=== PATIENT | male | born 1970 | race Caucasian/White ===

== ENCOUNTER 2023-04-23 09:06 | Observation (INO) | payer OTHER, SELFPAY ==
[2023-04-23] VITALS (26 sets, daily range): BP systolic 102–142; BP diastolic 67–90; PULSE 81–101; RESP 18–21; TEMP 36.7–37.2; O2SAT 94–99; BMI 27.7; BMI 28.8
--- NOTE | 2023-04-23 09:50 | ED_ITS ---
HPI - Syncope General Time Seen by Provider: 09:50 Date Seen: 04/23/23 Chief Complaint: Syncope/Fainted Stated Complaint: passed out Time Seen by Provider: 04/23/23 09:49 Source: patient, RN notes reviewed and old records reviewed Mode of arrival: ambulatory Limitations: no limitations History of Present Illness HPI narrative: Patient is a very pleasant 52-year-old male previously healthy who comes to the emergency room via EMS for evaluation regarding Syncope and not feeling well. Patient notes that he arose this morning and he experience some chills and some joint pain. He states he sat out on his deck in the sun and when he came in to go get a Kleenex because his nose was running he felt lightheaded. He describes feeling dizzy and he went to sit in the chair and once he got there he became unresponsive. His states that he was shaking somewhat and she was holding him up otherwise he would have fallen to the floor. EMS was called and when the y arrived they helped him to the ground and he states that he could hear all other voices. His states that once he was laid down he came too pretty quick although when he 1st started speaking they could not understand him. patient states that this was dizziness and when I describe vertigo he denies that. States he was very lightheaded. He notes that he has passed out in the past and this was secondary to blood loss from diverticulitis. He notes no recent diarrhea or blood in his stool. Patient's describes him as sitting down in the chair in becoming very white and tensing up. She states he looked like he was having a seizure and she held him up in this lasted for several minutes while awaiting EMS. She upon further discussion she thinks 5 her last. She notes that he was gurgling and making some weird noises and she was worried he was going to stop breathing but he actually did not. Patient denies any fever. He has not had cough cold sore throat. He denies dysuria hematuria abdominal pain. He has not been in the [place] recently or had any tick bites. He notes no chest pain or shortness of breath. He notes he just feels very tired at this time. Related Data Home Medications Medication Instructions Recorded Confirmed fexofenadine 180 mg tablet 180 mg PO QDAY 08/08/22 04/23/23 ([facility]) mupirocin 2 % topical ointment 1 applic topical TID 08/08/22 omeprazole magnesium 20 mg 20 mg PO DAILY 04/23/23 04/23/23 tablet,delayed release (Prilosec OTC) Allergies Allergy/AdvReac Type Severity Reaction Status Date / Time No Known Drug Allergies Allergy Verified 08/08/22 13:46 Review of Systems Status of ROS: Reports: 10 or more systems reviewed and unremarkable except as noted in History and below Narrative: Denies recent travel calf tenderness or history of DVT. Const: Reports: chills and fatigue; Denies: fever Eyes: Denies: blurry vision ENMT: Denies: throat pain, neck pain, throat swelling, difficulty swallowing or hoarseness Cardio: Denies: chest pain, palpitations, swelling of feet/ankles, lightheadedness or shortness of breath with exertion Resp: Denies: shortness of breath, cough or wheezing GI: Denies: abdominal pain, nausea, vomiting, diarrhea, constipation, difficulty swallowing or blood in stool : Denies: painful urination, urinary frequency or urinary urgency Musculo: Denies: back pain, neck pain or extremity swelling Integ/Breast: Denies: rash, redness or skin tenderness Neuro: Denies: headache, numbness in extremities or weakness in extremities Endo: Reports: fatigue Allergy/Immuno: Denies: throat swelling or wheezing PFSH PFS Medical History Anemia ?D64.9 - Anemia, unspecified (ICD-10) Erectile dysfunction ?N52.9 - Male erectile dysfunction, unspecified (ICD-10) Gout ?M10.9 - Gout, unspecified (ICD-10) Seasonal allergies ?J30.2 - Other seasonal allergic rhinitis (ICD-10) Gastroesophageal reflux disease ?K21.9 - Gastro-esophageal reflux disease without esophagitis (ICD-10) Kidney stones ?N20.0 - Calculus of kidney (ICD-10) Diverticular hemorrhage ?K57.31 - Diverticulosis of large intestine without perforation or abscess with bleeding (ICD-10) Social History Narrative: He lives with his , stepdaughter and grandson. 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 He does not smoke. Drinks alcohol 2 or 3 times a week. He has no recreational drug use. Smoking Status: Never smoker Do you use any of these nicotine containing products: None Second hand tobacco smoke exposure: No How often do you have a drink containing alcohol: 2-3 times a week How many standard drinks containing alcohol do you have on a typical day: 3 or 4 How often do you have six or more drinks on one occasion: Never AUDIT-C Alcohol total score: 4 Non-prescribed substance use: denies use Exam Narrative: Exam Narrative: Eric is alert and oriented. Appropriate speech. GCS of 15 Head is atraumatic normocephalic. Patient appears somewhat pale to me. EOM is full pupils equal round reactive. Oral cavity with moist mucous membranes. Neck is supple without lymphadenopathy. heart with a tachycardic rate but normal rhythm. Lungs are clear bilaterally Abdomen is soft nontender. Lower extremities without edema. No calf tenderness, negative Homans sign. Patient has upper and lower extremity strength that is normal. Mentating normally. Const: Vital Signs, click to edit/add: Vital Signs - 24 hr 04/23/23 09:16 04/23/23 09:17 04/23/23 09:31 Temperature 98.1 F Pulse Rate 89 86 Pulse Rate [Pulse Oximeter] 87 Pulse Rate [orthos tatic lying] Pulse Rate [orthos tatic sitting] Pulse Rate [orthos tatic standing] Respiratory Rate 18 Blood Pressure 114/72 113/72 Blood Pressure [Le ft Upper Arm] 114/72 Blood Pressure [or thostatic lying Le ft Arm] Blood Pressure [or thostatic sitting Left Arm] Blood Pressure [or thostatic standing Left Arm] Pulse Oximetry 97 97 97 Oxygen Delivery Ut thod Room Air 04/23/23 09:38 04/23/23 10:01 04/23/23 11:02 Temperature Pulse Rate 94 81 Pulse Rate [Pulse Oximeter] Pulse Rate [orthos tatic lying] 84 Pulse Rate [orthos tatic sitting] 87 Pulse Rate [orthos tatic standing] 93 Respiratory Rate Blood Pressure 118/79 120/71 Blood Pressure [Le ft Upper Arm] Blood Pressure [or thostatic lying Le ft Arm] 107/67 Blood Pressure [or thostatic sitting Left Arm] 110/72 Blood Pressure [or thostatic standing Left Arm] 102/70 Pulse Oximetry 98 97 Oxygen Delivery Me thod 04/23/23 11:31 04/23/23 12:01 04/23/23 12:31 Temperature Pulse Rate 91 86 99 Pulse Rate [Pulse Oximeter] Pulse Rate [orthos tatic lying] Pulse Rate [orthos tatic sitting] Pulse Rate [orthos tatic standing] Respiratory Rate Blood Pressure 123/77 124/79 112/73 Blood Pressure [Le ft Upper Arm] Blood Pressure [or thostatic lying Le ft Arm] Blood Pressure [or thostatic sitting Left Arm] Blood Pressure [or thostatic standing Left Arm] Pulse Oximetry 96 96 96 Oxygen Delivery Me thod 04/23/23 13:00 04/23/23 13:02 04/23/23 13:17 Temperature Pulse Rate 98 96 94 Pulse Rate [Pulse Oximeter] Pulse Rate [orthos tatic lying] Pulse Rate [orthos tatic sitting] Pulse Rate [orthos tatic standing] Respiratory Rate Blood Pressure 123/76 Blood Pressure [Le ft Upper Arm] Blood Pressure [or thostatic lying Le ft Arm] Blood Pressure [or thostatic sitting Left Arm] Blood Pressure [or thostatic standing Left Arm] Pulse Oximetry 98 98 94 Oxygen Delivery Me thod 04/23/23 13:30 04/23/23 13:31 04/23/23 13:45 Temperature Pulse Rate 89 90 85 Pulse Rate [Pulse Oximeter] Pulse Rate [orthos tatic lying] Pulse Rate [orthos tatic sitting] Pulse Rate [orthos tatic standing] Respiratory Rate Blood Pressure 127/82 Blood Pressure [Le ft Upper Arm] Blood Pressure [or thostatic lying Le ft Arm] Blood Pressure [or thostatic sitting Left Arm] Blood Pressure [or thostatic standing Left Arm] Pulse Oximetry 98 96 98 Oxygen Delivery Me thod 04/23/23 14:00 04/23/23 14:02 04/23/23 14:15 Temperature Pulse Rate 86 95 82 Pulse Rate [Pulse Oximeter] Pulse Rate [orthos tatic lying] Pulse Rate [orthos tatic sitting] Pulse Rate [orthos tatic standing] Respiratory Rate Blood Pressure 131/83 Blood Pressure [Le ft Upper Arm] Blood Pressure [or thostatic lying Le ft Arm] Blood Pressure [or thostatic sitting Left Arm] Blood Pressure [or thostatic standing Left Arm] Pulse Oximetry 99 98 98 Oxygen Delivery Me thod 04/23/23 14:30 04/23/23 14:31 04/23/23 14:45 Temperature Pulse Rate 94 83 90 Pulse Rate [Pulse Oximeter] Pulse Rate [orthos tatic lying] Pulse Rate [orthos tatic sitting] Pulse Rate [orthos tatic standing] Respiratory Rate Blood Pressure 142/83 H Blood Pressure [Le ft Upper Arm] Blood Pressure [or thostatic lying Le ft Arm] Blood Pressure [or thostatic sitting Left Arm] Blood Pressure [or thostatic standing Left Arm] Pulse Oximetry 98 99 98 Oxygen Delivery Me thod 04/23/23 15:02 Temperature Pulse Rate Pulse Rate [Pulse Oximeter] Pulse Rate [orthos tatic lying] Pulse Rate [orthos tatic sitting] Pulse Rate [orthos tatic standing] Respiratory Rate Blood Pressure 133/90 H Blood Pressure [Le ft Upper Arm] Blood Pressure [or thostatic lying Le ft Arm] Blood Pressure [or thostatic sitting Left Arm] Blood Pressure [or thostatic standing Left Arm] Pulse Oximetry Oxygen Delivery Ut thod Documenting provider has reviewed patient's vital signs: yes Course Reevaluation(s) Reevaluation #1: Differential diagnosis includes but is not limited to pneumonia, COVID, cardiac arrhythmia, infection, anxiety, dehydration. Will place an IV and give normal saline as well as check labs to include CBC, troponin, comprehensive panel, CRP, urinalysis. will also add blood cultures and lactate Reevaluation #2: at this time chest x-ray reassuring. EKG without evidence of acute findings. We are still waiting on urinalysis. Lactate elevated and thus we will give saline bolus based on weight 30 mL/kilogram as patient does meet sepsis criteria with tachycardia, elevated white count, elevated lactate. He does not yet have a temperature but is describing significant chills. No evidence of respiratory compromise and chest x-rays without evidence of pneumonia. Vital Signs Vital signs: Initial Vital Signs Temperature 98.1 F 04/23/23 09:16 Temperature Source Temporal Artery Scan 04/23/23 09:16 Pulse Rate 87 04/23/23 09:16 Respiratory Rate 18 04/23/23 09:16 Blood Pressure 114/72 04/23/23 09:16 Blood Pressure Mean 86 04/23/23 09:16 Blood Pressure Position Supine 04/23/23 09:16 Pulse Oximetry 97 04/23/23 09:16 Oxygen Delivery Method Room Air 04/23/23 09:16 Vital Signs Temperature 98.1 F 04/23/23 09:16 Pulse Rate 87 04/23/23 09:16 Respiratory Rate 18 04/23/23 09:16 Blood Pressure 114/72 04/23/23 09:16 Pulse Oximetry 97 04/23/23 09:16 Oxygen Delivery Method Room Air 04/23/23 09:16 Temperature 98.1 F 04/23/23 09:16 Pulse Rate 90 04/23/23 14:45 Respiratory Rate 18 04/23/23 09:16 Blood Pressure 133/90 H 04/23/23 15:02 Pulse Oximetry 98 04/23/23 14:45 Oxygen Delivery Method Room Air 04/23/23 09:16 MDM - Syncope MDM Narrative Medical decision making narrative: 1. Sepsis-patient has elevated white count Of 17.79elevated lactate of 2 point 4,elevated CRP with chills, syncope. At this time to not have identifiable source of infection. Blood cultures are currently pending. Patient is given Zosyn 3.375 g IV will be admitted to the hospital while we are awaiting official cultures. Have added West Nile and a tick-borne panel to laboratory values. Patient received a total of 2750 mils of normal saline. COVID/influenza/ RSV and strep all negative as well. 2. History of diverticular bleed-patient notes no abdominal pain or blood in stool. Hemoglobin is 11 point 3. 3. Syncope-patient noted to be feeling lightheaded. Denies vertigo. Was able to lift his head from the table when EMS arrived but definitely improved once he was lying on the ground. EKG shows sinus rhythm and during his time here no evidence of arrhythmia on the air sampling and monitoring. subsequent drug tox and alcohol negative. Troponin is negative. Patient had no evidence of loss of bowel bladder control and the shaking her seizure activity likely secondary to being held up after syncopal episode. 4. Disposition- admit to the hospital under the care of Dr. St. Antibiotics currently pending outcome of blood cultures. Medical Records Attestation: I reviewed the patient's medical records. Lab Data Attestation: I reviewed the patient's lab results. Labs: Lab Results 04/23/23 04/23/23 04/23/23 Range/Units 10:30 12:40 13:15 WBC 17.79 H (4.50-11.00) K/uL RBC 5.01 (4.30-5.90) m/uL Hgb 11.3 L (13.5-17.5) gm/dL Hct 37.1 (37.0-53.0) % MCV 74 L (80-100) fL MCH 23 L (26-34) pg MCHC 31 L (32-36) gm/dL RDW Coeff of Libra 16.3 H (11.5-15.5) % Plt Count 358 (140-440) K/uL Neut % (Auto) 87.3 H (42.0-72.0) % Lymph % (Auto) 6.0 L (20-44) % [place]ue % (Auto) 6.2 (0.0-11.0) % Eos % (Auto) 0.2 (0.0-7.0) % Baso % (Auto) 0.2 (0.0-3.0) % Neut # (Auto) 15.50 H (1.7-7.0) K/uL Lymph # (Auto) 1.10 (0.90-2.90) K/uL [place] # (Auto) 1.10 H (0.00-0.90) K/UL Eos # (Auto) 0.00 (0.00-0.50) K/uL Baso # (Auto) 0.00 (0.00-0.30) K/uL D-Dimer Quant (PE/DVT) 0.87 H (0.00-0.50) ug/ml Sodium 139 (135-149) mmol/L Potassium 4.4 (3.6-5.1) mmol/L Chloride 105 (96-114) mmol/L Carbon Dioxide 26 (20-32) mmol/L BUN 15 (7-30) mg/dL Creatinine 1.3 (0.5-1.5) mg/dL Estimated Creat Clear 72.13 Estimated GFR 66 ml/min Glucose 99 (60-115) mg/dL Lactate 2.3 H 2.4 H (0.5-1.9) mmol/L Calcium 9.0 (8.4-10.6) mg/dL Total Bilirubin 0.8 (0.1-1.5) mg/dL AST 28 (12-35) U/L ALT 29 (4-50) U/L Alkaline Phosphatase 104 (40-150) U/L C-Reactive Protein 2.2 H (0.5-1.0) mg/dL Total Protein 7.3 (6.0-8.3) g/dL Albumin 4.2 (3.3-5.0) g/dL Procalcitonin 0.14 (<0.50) ng/mL Urine Color Yellow (Yellow) Urine Appearance Clear (Clear) Urine pH 6.0 (5.0-8.5) Ur Specific [place] 1.020 (1.000-1.030) Urine Protein Negative (Negative) Urine Glucose (UA) Negative (Negative) Urine Ketones Negative (Negative) Urine Blood Negative (Negative) Urine Nitrite Negative (Negative) Urine Bilirubin Negative (Negative) Urine Urobilinogen 0.2 (0.2-1.0) Ur Leukocyte Esterase Negative (Negative) Urine RBC 0-2 (0-2) Urine WBC 0-2 (0-5) Ur Squamous Epith Cells Few (None-Few) Urine Bacteria Few A (None) Urine Opiates Screen Negative (Negative) Ur Oxycodone Screen Negative (Negative) Urine Methadone Screen Negative (Negative) Ur Propoxyphene Screen Negative (Negative) Ur Barbiturates Screen Negative (Negative) U Tricyclic Antidepress Negative (Negative) Ur Phencyclidine Scrn Negative (Negative) Ur Amphetamines Screen Negative (Negative) U Methamphetamines Scrn Negative (Negative) U Benzodiazepines Scrn Negative (Negative) Urine Cocaine Screen Negative (Negative) U Marijuana (THC) Screen Negative (Negative) Ur Drug Screen Comment See Note Ethyl Alcohol < 0.01 L (0.01-0.03) % SARS-CoV-2 (PCR) Negative SARS-CoV-2 (Negative) Influenza Type A (PCR) Negative PCR FLU A (Negative) Influenza Type B (PCR) Negative PCR FLU B (Negative) RSV (PCR) Negative PCR RSV (Negative) Group A Strep DNA NOT DETECTED (Not Detectd) Lab Acknowledgement POC Troponin I 0.00 L 0.00 L (0.01-0.04) ng/ml 04/23/23 04/23/23 Range/Units 14:35 14:42 WBC (4.50-11.00) K/uL RBC (4.30-5.90) m/uL Hgb (13.5-17.5) gm/dL Hct (37.0-53.0) % MCV (80-100) fL MCH (26-34) pg MCHC (32-36) gm/dL RDW Coeff of Libra (11.5-15.5) % Plt Count (140-440) K/uL Neut % (Auto) (42.0-72.0) % Lymph % (Auto) (20-44) % Larue % (Auto) (0.0-11.0) % Eos % (Auto) (0.0-7.0) % Baso % (Auto) (0.0-3.0) % Neut # (Auto) (1.7-7.0) K/uL Lymph # (Auto) (0.90-2.90) K/uL [place] # (Auto) (0.00-0.90) K/UL Eos # (Auto) (0.00-0.50) K/uL Baso # (Auto) (0.00-0.30) K/uL D-Dimer Quant (PE/DVT) (0.00-0.50) ug/ml Sodium (135-149) mmol/L Potassium (3.6-5.1) mmol/L Chloride (96-114) mmol/L Carbon Dioxide (20-32) mmol/L BUN (7-30) mg/dL Creatinine (0.5-1.5) mg/dL Estimated Creat Clear Estimated GFR ml/min Glucose (60-115) mg/dL Lactate (0.5-1.9) mmol/L Calcium (8.4-10.6) mg/dL Total Bilirubin (0.1-1.5) mg/dL AST (12-35) U/L ALT (4-50) U/L Alkaline Phosphatase (40-150) U/L C-Reactive Protein (0.5-1.0) mg/dL Total Protein (6.0-8.3) g/dL Albumin (3.3-5.0) g/dL Procalcitonin (<0.50) ng/mL Urine Color (Yellow) Urine Appearance (Clear) Urine pH (5.0-8.5) Ur Specific [place] (1.000-1.030) Urine Protein (Negative) Urine Glucose (UA) (Negative) Urine Ketones (Negative) Urine Blood (Negative) Urine Nitrite (Negative) Urine Bilirubin (Negative) Urine Urobilinogen (0.2-1.0) Ur Leukocyte Esterase (Negative) Urine RBC (0-2) Urine WBC (0-5) Ur Squamous Epith Cells (None-Few) Urine Bacteria (None) Urine Opiates Screen (Negative) Ur Oxycodone Screen (Negative) Urine Methadone Screen (Negative) Ur Propoxyphene Screen (Negative) Ur Barbiturates Screen (Negative) U Tricyclic Antidepress (Negative) Ur Phencyclidine Scrn (Negative) Ur Amphetamines Screen (Negative) U Methamphetamines Scrn (Negative) U Benzodiazepines Scrn (Negative) Urine Cocaine Screen (Negative) U Marijuana (THC) Screen (Negative) Ur Drug Screen Comment Ethyl Alcohol (0.01-0.03) % SARS-CoV-2 (PCR) (Negative) Influenza Type A (PCR) (Negative) Influenza Type B (PCR) (Negative) RSV (PCR) (Negative) Group A Strep DNA (Not Detectd) Lab Acknowledgement Test Added Test Added POC Troponin I (0.01-0.04) ng/ml Imaging Data Chest x-ray: Attestation: I have reviewed the pertinent imaging results. My impression: No obvious infiltrates. Radiologist's impression: he cardiomediastinal contours appear within normal limits. No suspicious focal or diffuse pulmonary opacities. No definite pneumothorax or pleural effusion. No aggressive appearing osseous lesion. IMPRESSION: No acute pulmonary process. ECG Data Attestation: I personally reviewed and interpreted this ECG as follows: ECG interpretation date: 04/23/23 Interpretation: EKG 1. Shows sinus rhythm at a rate of 85. No acute ST or T-wave changes are noted. EKG 2. Shows sinus rhythm at a rate of [address] or T-wave changes Discharge Plan Discharge Clinical Impression: Syncope Qualifiers: Syncope type: unspecified Qualified Code(s): R55 - Syncope and collapse Sepsis Qualifiers: Sepsis type: sepsis due to unspecified organism Sepsis acute organ dysfunction status: unspecified Qualified Code(s): A41.9 - Sepsis, unspecified organism Patient Disposition: Admitted As Inpatient Condition: Improved
--- NOTE | 2023-04-23 10:04 | CRLHL7_ITS ---
For Patients: As a result of the Century Cures Act, medical imaging exams and procedure reports are released immediately into your electronic medical record. You may view this report before your referring provider. If you have questions, please contact your health care provider. INDICATION: Passed out TECHNIQUE: Single portable frontal view COMPARISON: None available FINDINGS: The cardiomediastinal contours appear within normal limits. No suspicious focal or diffuse pulmonary opacities. No definite pneumothorax or pleural effusion. No aggressive appearing osseous lesion. IMPRESSION: No acute pulmonary process. Dictated by Fernando Laguerre MD @ 04/23/2023 11:09:41 AM (Electronically Signed)
[2023-04-23] MEDS: 0.9 % SODIUM CHLORIDE 1000 ml 1,000 ML IV ×2 (10:35→12:15)
[2023-04-23 10:41] LABS: Lactate* 2.3 mmol/L (0.5-1.9)
[2023-04-23 10:44] LABS: Basophils Percent Auto 0.2 % (0.0-3.0); Eosinophils Percent Auto 0.2 % (0.0-7.0); Hematocrit 37.1 % (37.0-53.0); Hemoglobin* 11.3 gm/dL (13.5-17.5); Immature Granulocytes Pct Auto 0.1 %; Mean Corpuscular HGB Conc 31 gm/dL (32-36); Mean Corpuscular Hemoglobin 23 pg (26-34); Mean Corpuscular Volume 74 fL (80-100); Monocytes Percent Auto 6.2 % (0.0-11.0); Neutrophils Percent Auto 87.3 % (42.0-72.0); Platelet Count* 358 K/uL (140-440); RDW Coefficient of Variation % 16.3 % (11.5-15.5); Red Blood Count 5.01 m/uL (4.30-5.90); White Blood Count* 17.79 K/uL (4.50-11.00)
[2023-04-23 10:45] LABS: Slide Review Reflex No
[2023-04-23 11:00] LABS: Albumin* 4.2 g/dL (3.3-5.0); Chloride* 105 mmol/L (96-114); Potassium* 4.4 mmol/L (3.6-5.1); Sodium* 139 mmol/L (135-149)
[2023-04-23 11:02] LABS: Creatinine* 1.3 mg/dL (0.5-1.5); Est. Creatinine Clearance* 72.13; Estimated Glomerular Filt Rate 66 ml/min
[2023-04-23 11:03] LABS: Alanine Aminotransferase* 29 U/L (4-50); Alkaline Phosphatase* 104 U/L (40-150); Aspartate Amino Transferase* 28 U/L (12-35); Bilirubin Total* 0.8 mg/dL (0.1-1.5); Blood Urea Nitrogen* 15 mg/dL (7-30); Carbon Dioxide* 26 mmol/L (20-32); Total Protein* 7.3 g/dL (6.0-8.3)
[2023-04-23 11:04] LABS: Glucose* 99 mg/dL (60-115)
[2023-04-23 11:06] LABS: C Reactive Protein* 2.2 mg/dL (0.5-1.0)
[2023-04-23 11:36] LABS: PCR FLU A Negative PCR FLU A (Negative); PCR FLU B Negative PCR FLU B (Negative); PCR RSV Negative PCR RSV (Negative)
[2023-04-23 11:37] LABS: Strep A DNA Probe* NOT DETECTED (Not Detectd)
[2023-04-23 11:38] LABS: SARS PCR* Negative SARS-CoV-2 (Negative)
[2023-04-23 12:51] LABS: Lactate* 2.4 mmol/L (0.5-1.9)
[2023-04-23 13:20] LABS: Appearance Urine Clear (Clear); Bilirubin Urine Negative (Negative); Blood Urine Negative (Negative); Color Urine Yellow (Yellow); Glucose Urine Negative (Negative); Ketones Urine Negative (Negative); Leukocyte Esterase Urine Negative (Negative); Nitrite Urine Negative (Negative); Protein Urine Negative (Negative); Urobilinogen Urine 0.2 (0.2-1.0)
[2023-04-23 13:32] LABS: Bacteria Urine Few; RBC Urine 0-2 (0-2); Squamous Epithelial Cell Urine Few (None-Few); WBC Urine 0-2 (0-5)
--- NOTE | 2023-04-23 13:50 | ED.NURSE ---
Report given to JS Dubon.
[2023-04-23] MEDS: 0.9 % SODIUM CHLORIDE 500 ML 500 ML IV (14:26)
[2023-04-23] MEDS: 0.9 % SODIUM CHLORIDE 250 ml 250 ML IV (14:26)
[2023-04-23] MEDS: PIPERACILLIN/TAZOBACTAM 3.375 GM in 0.9 % SODIUM CHLORIDE Mini-bag 100 ML IVPB (14:47)
[2023-04-23 14:59] LABS: Ethanol* < 0.01 % (0.01-0.03)
[2023-04-23 15:01] LABS: Amphetamine Screen Urine Negative (Negative); Barbiturate Screen Urine Negative (Negative); Benzodiazepines Screen Urine Negative (Negative); Cannabinoid Screen Urine Negative (Negative); Cocaine Screen Urine Negative (Negative); Methadone Screen Urine Negative (Negative); Methamphetamines Screen Urine Negative (Negative); Opiate Screen Urine Negative (Negative); Oxycodone Screen Urine Negative (Negative); Phencyclidine Screen Urine Negative (Negative); Tricyclic Antidepressant Urine Negative (Negative)
[2023-04-23 15:02] LABS: D Dimer Quantitative* 0.87 ug/ml (0.00-0.50)
--- NOTE | 2023-04-23 15:54 | P.IMHP_ITS ---
Hospitalist- H&P: [facility] History of Present Illness Date Seen: 04/23/23 Chief complaint: passed out Narrative: Eric Aguirre is a 52 year old male who had syncope and fever today. He was in his usual state of health yesterday with no symptoms of illness. He awoke this morning and felt chilled and achy. At his 's suggestion he was going to get a COVID test. He is walking to do that when he felt quite lightheaded. Sat down in a chair. Continued to feel very lightheaded and then lost consciousness. His observed him to be very sweaty and clammy and pale appearance when this occurred. He remained sitting up. She attempted to transfer him so he get light on the floor but he was too big for her to handle so he remained sitting up. Eventually they did rest his head on the countertop in front of him and he began to come to. They called 911 and by the time the paramedics got there and laid him on the floor he was back to normal. There is no seizure activity. He did have his arms flexed and his hands in a fist. He has had no previous history of problems with syncope. He apparently did have an episode of syncope associated with an episode of diverticular bleeding where he required a blood transfusion a few years ago. He has had no chest pain or dyspnea or palpitations. He has had no nausea, vomiting, diarrhea, constipation, blood in his stool, abdominal pain. He reports no urinary problems. Other than diverticular bleeding. No other bleeding or clotting problems. He has had no other exposures to anybody else who has been ill. Had no recent significant travel. He lives with his and daughter and grand son who are all well. 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 He may have been exposed to a co-worker with strep throat but no other ill exposures. No other travel outside of [facility]. He has been doing a little bit of [employer] work on and off over the past few weeks but no other significant outside exposures. He has known known cardiovascular disease, respiratory illness. No neurologic problems. No seizures. History of diverticular bleeding and kidney stones and gout and gastroesophageal reflux disease. Review of Systems Narrative: Patient reports he is currently feeling fine. Fevers resolved. Achiness is better. No more lightheadedness. Family history: Both parents are alive and well. Father is had a previous traumatic head injury. Paternal grandfather had Parkinson's disease and Alzheimer's disease. No history of bleeding or clotting problems in the family. [facility] Medical History (Updated 04/23/23 @ 16:[address] MD) Anemia ?D64.9 - Anemia, unspecified (ICD-10) Erectile dysfunction ?N52.9 - Male erectile dysfunction, unspecified (ICD-10) Gout ?M10.9 - Gout, unspecified (ICD-10) Seasonal allergies ?J30.2 - Other seasonal allergic rhinitis (ICD-10) Gastroesophageal reflux disease ?K21.9 - Gastro-esophageal reflux disease without esophagitis (ICD-10) Kidney stones ?N20.0 - Calculus of kidney (ICD-10) Diverticular hemorrhage ?K57.31 - Diverticulosis of large intestine without perforation or abscess with bleeding (ICD-10) Social History (Updated 04/23/23 @ 16:[address] MD) Narrative: He lives with his , stepdaughter and grandson. He works managing a [employer] food plant in [place]. He does not smoke. Drinks alcohol 2 or 3 times a week. He has no recreational drug use. Smoking Status: Never smoker Do you use any of these nicotine containing products: None Second hand tobacco smoke exposure: No How often do you have a drink containing alcohol: 2-3 times a week How many standard drinks containing alcohol do you have on a typical day: 3 or 4 How often do you have six or more drinks on one occasion: Never AUDIT-C Alcohol total score: 4 Non-prescribed substance use: denies use Meds Home Medications and Allergies Home Medications Medication Instructions Recorded Confirmed Type fexofenadine 180 mg tablet 180 mg PO QDAY 08/08/22 04/23/23 History (Teresa Allergy) mupirocin 2 % topical ointment 1 applic topical TID 08/08/22 History omeprazole magnesium 20 mg 20 mg PO DAILY 04/23/23 04/23/23 History tablet,delayed release (Prilosec OTC) Allergies Allergy/AdvReac Type Severity Reaction Status Date / Time No Known Drug Allergies Allergy Verified 08/08/22 13:46 Exam Narrative: Exam Narrative: He is alert and appears in no distress. He gives his own history. Head is without apparent trauma. Nontender. Eyes normal. Sclerae nonicteric. Extraocular movements are full. Pupils are equal round reactive to light and accommodation. Oropharynx is normal. Normal mucosa. No erythema. Neck is supple without mass or adenopathy. No stridor. No tenderness. He has no stiffness or discomfort with full range of motion of the neck. Respirations are clear to auscultation. Good air exchange in all lung wells. Cardiovascular: S1, S2, regular rate and rhythm. No murmur gallop or rub. Abdomen: Bowel sounds active. Abdomen is soft without tenderness or mass. External genitalia normal. Extremities with good peripheral pulses. No edema. No tenderness or erythema. No rash He moves all 4 extremities well. Const: Vital Signs, click to edit/add: Vital Signs - 24 hr 04/23/23 09:16 04/23/23 09:17 04/23/23 09:31 Temperature 98.1 F Pulse Rate 89 86 Pulse Rate [Pulse Oximeter] 87 Pulse Rate [orthos tatic lying] Pulse Rate [orthos tatic sitting] Pulse Rate [orthos tatic standing] Respiratory Rate 18 Blood Pressure 114/72 113/72 Blood Pressure [Le ft Upper Arm] 114/72 Blood Pressure [or thostatic lying Le ft Arm] Blood Pressure [or thostatic sitting Left Arm] Blood Pressure [or thostatic standing Left Arm] Pulse Oximetry 97 97 97 [facility] 04/23/23 09:38 04/23/23 10:01 04/23/23 11:02 Temperature Pulse Rate 94 81 Pulse Rate [Pulse Oximeter] Pulse Rate [orthos tatic lying] 84 Pulse Rate [orthos tatic sitting] 87 Pulse Rate [orthos tatic standing] 93 Respiratory Rate Blood Pressure 118/79 120/71 Blood Pressure [Le ft Upper Arm] Blood Pressure [or thostatic lying Le ft Arm] 107/67 Blood Pressure [or thostatic sitting Left Arm] 110/72 Blood Pressure [or thostatic standing Left Arm] 102/70 Pulse Oximetry 98 97 Oxygen Delivery Ak thod 04/23/23 11:31 04/23/23 12:01 04/23/23 12:31 Temperature Pulse Rate 91 86 99 Pulse Rate [Pulse Oximeter] Pulse Rate [orthos tatic lying] Pulse Rate [orthos tatic sitting] Pulse Rate [orthos tatic standing] Respiratory Rate Blood Pressure 123/77 124/79 112/73 Blood Pressure [Le ft Upper Arm] Blood Pressure [or thostatic lying Le ft Arm] Blood Pressure [or thostatic sitting Left Arm] Blood Pressure [or thostatic standing Left Arm] Pulse Oximetry 96 96 96 [facility] 04/23/23 13:00 04/23/23 13:02 04/23/23 13:17 Temperature Pulse Rate 98 96 94 Pulse Rate [Pulse Oximeter] Pulse Rate [orthos tatic lying] Pulse Rate [orthos tatic sitting] Pulse Rate [orthos tatic standing] Respiratory Rate Blood Pressure 123/76 Blood Pressure [Le ft Upper Arm] Blood Pressure [or thostatic lying Le ft Arm] Blood Pressure [or thostatic sitting Left Arm] Blood Pressure [or thostatic standing Left Arm] Pulse Oximetry 98 98 94 [facility] 04/23/23 13:30 04/23/23 13:31 04/23/23 13:45 Temperature Pulse Rate 89 90 85 Pulse Rate [Pulse Oximeter] Pulse Rate [orthos tatic lying] Pulse Rate [orthos tatic sitting] Pulse Rate [orthos tatic standing] Respiratory Rate Blood Pressure 127/82 Blood Pressure [Le ft Upper Arm] Blood Pressure [or thostatic lying Le ft Arm] Blood Pressure [or thostatic sitting Left Arm] Blood Pressure [or thostatic standing Left Arm] Pulse Oximetry 98 96 98 [facility] 04/23/23 14:00 04/23/23 14:02 04/23/23 14:15 Temperature Pulse Rate 86 95 82 Pulse Rate [Pulse Oximeter] Pulse Rate [orthos tatic lying] Pulse Rate [orthos tatic sitting] Pulse Rate [orthos tatic standing] Respiratory Rate Blood Pressure 131/83 Blood Pressure [Le ft Upper Arm] Blood Pressure [or thostatic lying Le ft Arm] Blood Pressure [or thostatic sitting Left Arm] Blood Pressure [or thostatic standing Left Arm] Pulse Oximetry 99 98 98 [facility] 04/23/23 14:30 04/23/23 14:31 04/23/23 14:45 Temperature Pulse Rate 94 83 90 Pulse Rate [Pulse Oximeter] Pulse Rate [orthos tatic lying] Pulse Rate [orthos tatic sitting] Pulse Rate [orthos tatic standing] Respiratory Rate Blood Pressure 142/83 H Blood Pressure [Le ft Upper Arm] Blood Pressure [or thostatic lying Le ft Arm] Blood Pressure [or thostatic sitting Left Arm] Blood Pressure [or thostatic standing Left Arm] Pulse Oximetry 98 99 98 Oxygen Delivery Ak thod 04/23/23 15:02 Temperature Pulse Rate Pulse Rate [Pulse Oximeter] Pulse Rate [orthos tatic lying] Pulse Rate [orthos tatic sitting] Pulse Rate [orthos tatic standing] Respiratory Rate Blood Pressure 133/90 H Blood Pressure [Le ft Upper Arm] Blood Pressure [or thostatic lying Le ft Arm] Blood Pressure [or thostatic sitting Left Arm] Blood Pressure [or thostatic standing Left Arm] Pulse Oximetry Oxygen Delivery Me thod Documenting provider has reviewed patient's vital signs: yes Hospitalist - H&P: Result Labs Labs: Short CBC 04/23/23 Range/Units 10:30 WBC 17.79 H (4.50-11.00) K/uL Hgb 11.3 L (13.5-17.5) gm/dL Hct 37.1 (37.0-53.0) % Plt Count 358 (140-440) K/uL BMP 04/23/23 10:30 Sodium 139 Potassium 4.4 Chloride 105 Carbon Dioxide 26 BUN 15 Creatinine 1.3 Glucose 99 Calcium 9.0 Liver Function 04/23/23 Range/Units 10:30 Total Bilirubin 0.8 (0.1-1.5) mg/dL AST 28 (12-35) U/L ALT 29 (4-50) U/L Alkaline Phosphatase 104 (40-150) U/L Albumin 4.2 (3.3-5.0) g/dL Urine 04/23/23 Range/Units 13:15 Urine Color Yellow (Yellow) Urine Appearance Clear (Clear) Urine pH 6.0 (5.0-8.5) Ur Specific [place] 1.020 (1.000-1.030) Urine Protein Negative (Negative) Urine Glucose (UA) Negative (Negative) Imaging Chest x-ray: Attestation: I have reviewed the pertinent imaging results. (Normal one- view chest x-ray) Assessment and Plan Assessment and plan (1) Syncope: Problem comment: Cause of syncope is unclear. Appears to be syncope as he has a prodrome of feeling lightheaded. observed that he was pale and diaphoretic. Fever and myalgias are his only symptoms. I favor infection as the cause of his acute illness today including syncope. Simplified PESI score is 0. Status: Acute (2) Fever: Problem comment: Cause of fever not clear at this point he is well-appearing. No other obvious focus of symptoms. Likely associated with the cause of his syncope as well. Status: Acute (3) Sepsis: Problem comment: Initial evaluation raised the possibility of sepsis. Does have elevated inflammatory markers and elevated lactate. No other obvious focus of infection. No other obvious organ failure. Other than fever his vital signs have been normal. Status: Acute (4) Anemia: Problem comment: Previous history of anemia from diverticular bleeding. This was about 3 years ago. He had colonoscopy about 2 and half years ago which only showed diverticulosis without any other abnormalities. Few months ago he did have a little bit of blood in his stool but has subsequently seen no blood or melena for the past few months. He was unaware of currently having anemia. Status: Acute Plan Will observe in hospital for evaluation of fever and syncope. Continue to monitor for focus of infection. Will hold antibiotics temporarily pending his clinical course. If he has worsening vital signs or apparent infection reinstitute empiric antibiotics. Continue to monitor for recurrent syncope. Monitor blood pressure and pulse on telemetry. Will also recheck hemoglobin. Hemoglobin likely to drop due to fluid resuscitation. Cause of anemia it remain s uncertain. Guaiac stools. Total time spent today is 75 minutes, 50 minutes in coordination of care discussing with patient, and other providers ongoing evaluation management of fever, syncope and anemia
[2023-04-23 16:26] LABS: Procalcitonin* 0.14 ng/mL (<0.50)
[2023-04-23 18:37] LABS: Lactate* 2.7 mmol/L (0.5-1.9)
[2023-04-23 18:39] LABS: Basophils Percent Auto 0.2 % (0.0-3.0); Eosinophils Percent Auto 0.6 % (0.0-7.0); Hemoglobin* 10.4 gm/dL (13.5-17.5); Immature Granulocytes Pct Auto 0.1 %; Mean Corpuscular HGB Conc 30 gm/dL (32-36); Mean Corpuscular Hemoglobin 23 pg (26-34); Mean Corpuscular Volume 76 fL (80-100); Monocytes Percent Auto 5.2 % (0.0-11.0); Neutrophils Percent Auto 79.9 % (42.0-72.0); Platelet Count* 101 K/uL (140-440); RDW Coefficient of Variation % 16.6 % (11.5-15.5); Red Blood Count 4.62 m/uL (4.30-5.90); White Blood Count* 14.35 K/uL (4.50-11.00)
[2023-04-23 18:40] LABS: Slide Review Reflex No
--- NOTE | 2023-04-23 19:51 | PC.NURSE ---
Nursing Care Hours: [id number] Pt this shift alert and oriented, calm and cooperative. Independent in room. No c/o pain, N/V/D, or feeling lightheaded. VSS. Eating and drinking sufficiently, void x2. no BM. LS clear, BS x4.
[2023-04-24] VITALS (9 sets, daily range): BP systolic 111–151; BP diastolic 73–103; PULSE 69–101; RESP 16–22; TEMP 36.6–37.4; O2SAT 94–99
[2023-04-24] MEDS: ACETAMINOPHEN 325 MG TABLET 650 MG PO (00:11)
[2023-04-24] MEDS: SODIUM CHLORIDE 0.9 % (FLUSH) 10 ML SYRINGE 5 ML IVF ×3 (00:11→19:51)
[2023-04-24 06:27] LABS: Lactate* 1.9 mmol/L (0.5-1.9)
--- NOTE | 2023-04-24 06:31 | PC.NURSE ---
[id number]: Patient pleasant and cooperative. Denies pain. Denies dizziness/lightheadedness. Denies N/V. Independent in room. Temp of 99.1 during noc and Tylenol administered.
[2023-04-24 06:36] LABS: Basophils Absolute Auto 0.05 K/uL (0.00-0.30); Basophils Percent Auto 0.5 % (0.0-3.0); Hematocrit 32.9 % (37.0-53.0); Hemoglobin* 9.9 gm/dL (13.5-17.5); Immature Granulocytes Abs Auto 0.02 K/uL (0.00-0.30); Immature Granulocytes Pct Auto 0.2 %; Lymphocytes Percent Auto 20.4 % (20-44); Mean Corpuscular HGB Conc 30 gm/dL (32-36); Mean Corpuscular Hemoglobin 23 pg (26-34); Mean Corpuscular Volume 75 fL (80-100); Neutrophils Absolute Auto 6.75 K/uL (1.7-7.0); Neutrophils Percent Auto 68.9 % (42.0-72.0); Platelet Count* 329 K/uL (140-440); RDW Coefficient of Variation % 16.8 % (11.5-15.5); Red Blood Count 4.39 m/uL (4.30-5.90); Slide Review Reflex No
[2023-04-24 06:51] LABS: Chloride* 108 mmol/L (96-114); Sodium* 141 mmol/L (135-149)
[2023-04-24 06:54] LABS: Blood Urea Nitrogen* 11 mg/dL (7-30); Carbon Dioxide* 26 mmol/L (20-32); Creatinine* 1.1 mg/dL (0.5-1.5); Est. Creatinine Clearance* 85.24; Estimated Glomerular Filt Rate 80 ml/min; Glucose* 125 mg/dL (60-115)
[2023-04-24 06:55] LABS: Calcium* 8.6 mg/dL (8.4-10.6)
[2023-04-24] MEDS: FEXOFENADINE 180 MG TABLET PO (08:41)
[2023-04-24] MEDS: OMEPRAZOLE 20 MG CAPSULE DR PO (08:41)
--- NOTE | 2023-04-24 10:59 | PM.IMPN1 ---
Progress Note: A&P Assessment and plan (1) Syncope: Problem details: Cause of syncope is unclear. Appears to be syncope as he has a prodrome of feeling lightheaded. observed that he was pale and diaphoretic. Fever and myalgias are his only symptoms. Status: Acute Assessment and Plan: Echo to r/o cardiac etiology (2) Fever: Problem details: Cause of fever not clear at this point he is well-appearing. No other obvious focus of symptoms. Status: Acute Assessment and Plan: continue to monitor off antibiotics check procal this morning (3) Sepsis: Problem details: Initial evaluation raised the possibility of sepsis. Does have elevated inflammatory markers and elevated lactate. No other obvious focus of infection. No other obvious organ failure. Status: Acute Assessment and Plan: LA resolved (4) Anemia: Problem details: Previous history of anemia from diverticular bleeding. This was about 3 years ago. He had colonoscopy about 2 and half years ago which only showed diverticulosis without any other abnormalities. Few months ago he did have a little bit of blood in his stool but has subsequently seen no blood or melena for the past few months. He was unaware of currently having anemia. Status: Acute Assessment and Plan: hemoccult negative Time Spent With Patient Total time spent: Echo today; likely DC home if afebrile for 24 hours; f/u Viral pathogen panel Subjective Date Seen: 04/24/23 Interval history: patient new to [place] admitted for syncope; sepsis r/o elevated temp overnight denies chest pain, sob, nausea, vomiting hemoccult negative Exam Narrative: Exam Narrative: Gen: no acute distress HEENT: NCAT EOMI mmm CV: RRR normal s1 s2 Lungs: CTAB Abd: Soft,nt, nd Neuro: Alert, oriented, CN grossly intact; nonfocal screening?exam Psych: appropriate affect MSK: age appropriate muscle mass Skin; Warm, dry no rash on face Const: Vital Signs, click to edit/add: Vital Signs - 24 hr 04/23/23 11:02 04/23/23 11:31 04/23/23 12:01 Temperature Pulse Rate 81 91 86 Pulse Rate [Right Pulse Oximeter] Pulse Rate [orthos tatic lying] Pulse Rate [orthos tatic sitting] Pulse Rate [orthos tatic standing] Respiratory Rate Blood Pressure 120/71 123/77 124/79 Blood Pressure [Ri ght Arm] Blood Pressure [or thostatic lying Le ft Arm] Blood Pressure [or thostatic sitting Left Arm] Blood Pressure [or thostatic standing Left Arm] Pulse Oximetry 97 96 96 Oxygen Delivery Oh thod 04/23/23 12:31 04/23/23 13:00 04/23/23 13:02 Temperature Pulse Rate 99 98 96 Pulse Rate [Right Pulse Oximeter] Pulse Rate [orthos tatic lying] Pulse Rate [orthos tatic sitting] Pulse Rate [orthos tatic standing] Respiratory Rate Blood Pressure 112/73 123/76 Blood Pressure [Ri ght Arm] Blood Pressure [or thostatic lying Le ft Arm] Blood Pressure [or thostatic sitting Left Arm] Blood Pressure [or thostatic standing Left Arm] Pulse Oximetry 96 98 98 Oxygen Delivery Oh thod 04/23/23 13:17 04/23/23 13:30 04/23/23 13:31 Temperature Pulse Rate 94 89 90 Pulse Rate [Right Pulse Oximeter] Pulse Rate [orthos tatic lying] Pulse Rate [orthos tatic sitting] Pulse Rate [orthos tatic standing] Respiratory Rate Blood Pressure 127/82 Blood Pressure [Ri ght Arm] Blood Pressure [or thostatic lying Le ft Arm] Blood Pressure [or thostatic sitting Left Arm] Blood Pressure [or thostatic standing Left Arm] Pulse Oximetry 94 98 [facility] 04/[facility]/23 13:45 04/23/23 14:00 04/23/23 14:02 Temperature Pulse Rate 85 86 95 Pulse Rate [Right Pulse Oximeter] Pulse Rate [orthos tatic lying] Pulse Rate [orthos tatic sitting] Pulse Rate [orthos tatic standing] Respiratory Rate Blood Pressure 131/83 Blood Pressure [Ri ght Arm] Blood Pressure [or thostatic lying Le ft Arm] Blood Pressure [or thostatic sitting Left Arm] Blood Pressure [or thostatic standing Left Arm] Pulse Oximetry 98 99 98 Oxygen Delivery Oh thod 04/23/23 14:15 04/23/23 14:30 04/23/23 14:31 Temperature Pulse Rate 82 94 83 Pulse Rate [Right Pulse Oximeter] Pulse Rate [orthos tatic lying] Pulse Rate [orthos tatic sitting] Pulse Rate [orthos tatic standing] Respiratory Rate Blood Pressure 142/83 H Blood Pressure [Ri ght Arm] Blood Pressure [or thostatic lying Le ft Arm] Blood Pressure [or thostatic sitting Left Arm] Blood Pressure [or thostatic standing Left Arm] Pulse Oximetry 98 98 99 Oxygen Delivery Me thod 04/23/23 14:45 04/23/23 15:02 04/23/23 17:04 Temperature 98.8 F Pulse Rate 90 Pulse Rate [Right Pulse Oximeter] 85 Pulse Rate [orthos tatic lying] Pulse Rate [orthos tatic sitting] Pulse Rate [orthos tatic standing] Respiratory Rate 21 Blood Pressure 133/90 H Blood Pressure [Ri ght Arm] 133/83 Blood Pressure [or thostatic lying Le ft Arm] Blood Pressure [or thostatic sitting Left Arm] Blood Pressure [or thostatic standing Left Arm] Pulse Oximetry 98 99 [facility] 04/23/23 19:58 04/23/23 19:59 04/23/23 22:39 Temperature 98.9 F Pulse Rate 96 Pulse Rate [Right Pulse Oximeter] 95 Pulse Rate [orthos tatic lying] 95 Pulse Rate [orthos tatic sitting] 99 Pulse Rate [orthos tatic standing] 101 H Respiratory Rate 20 Blood Pressure Blood Pressure [Ri ght Arm] 124/76 Blood Pressure [or thostatic lying Le ft Arm] 124/76 Blood Pressure [or thostatic sitting Left Arm] 129/83 Blood Pressure [or thostatic standing Left Arm] 130/87 Pulse Oximetry 96 [facility] 04/24/23 00:07 04/24/23 00:11 04/24/23 06:09 Temperature 99.1 F 99.1 F 98.2 F Pulse Rate Pulse Rate [Right Pulse Oximeter] 95 70 Pulse Rate [orthos tatic lying] Pulse Rate [orthos tatic sitting] Pulse Rate [orthos tatic standing] Respiratory Rate 16 16 Blood Pressure Blood Pressure [Ri ght Arm] 116/73 128/80 Blood Pressure [or thostatic lying Le ft Arm] Blood Pressure [or thostatic sitting Left Arm] Blood Pressure [or thostatic standing Left Arm] Pulse Oximetry 94 97 [facility] Room Air 04/24/23 07:00 04/24/23 07:00 04/24/23 07:00 Temperature 97.9 F Pulse Rate 80 Pulse Rate [Right Pulse Oximeter] 75 75 Pulse Rate [orthos tatic lying] Pulse Rate [orthos tatic sitting] Pulse Rate [orthos tatic standing] Respiratory Rate 22 22 Blood Pressure Blood Pressure [Ri ght Arm] 111/94 H Blood Pressure [or thostatic lying Le ft Arm] Blood Pressure [or thostatic sitting Left Arm] Blood Pressure [or thostatic standing Left Arm] Pulse Oximetry 98 Oxygen Delivery Me thod Room Air Labs Labs: Laboratory Results - last 24 hr 04/23/23 04/23/23 04/23/23 10:30 12:40 13:15 WBC RBC Hgb Hct MCV MCH MCHC RDW Coeff of Libra Plt Count Neut % (Auto) Lymph % (Auto) Cedar % (Auto) Eos % (Auto) Baso % (Auto) Neut # (Auto) Lymph # (Auto) Cedar # (Auto) Eos # (Auto) Baso # (Auto) D-Dimer Quant (PE/DVT) 0.87 H Sodium 139 Potassium 4.4 Chloride 105 Carbon Dioxide 26 BUN 15 Creatinine 1.3 Estimated Creat Clear 72.13 Estimated GFR 66 Glucose 99 Lactate 2.4 H Calcium 9.0 Total Bilirubin 0.8 AST 28 ALT 29 Alkaline Phosphatase 104 C-Reactive Protein 2.2 H Total Protein 7.3 Albumin 4.2 Procalcitonin 0.14 Urine Color Yellow Urine Appearance Clear Urine pH 6.0 Ur Specific [place] 1.020 Urine Protein Negative Urine Glucose (UA) Negative Urine Ketones Negative Urine Blood Negative Urine Nitrite Negative Urine Bilirubin Negative Urine Urobilinogen 0.2 Ur Leukocyte Esterase Negative Urine RBC 0-2 Urine WBC 0-2 Ur Squamous Epith Cells Few Urine Bacteria Few A Urine Opiates Screen Negative Ur Oxycodone Screen Negative Urine Methadone Screen Negative Ur Propoxyphene Screen Negative Ur Barbiturates Screen Negative U Tricyclic Antidepress Negative Ur Phencyclidine Scrn Negative Ur Amphetamines Screen Negative U Methamphetamines Scrn Negative U Benzodiazepines Scrn Negative Urine Cocaine Screen Negative U Marijuana (THC) Screen Negative Ur Drug Screen Comment See Note Ethyl Alcohol < 0.01 L SARS-CoV-2 (PCR) Negative SARS-CoV-2 Influenza Type A (PCR) Negative PCR FLU A Influenza Type B (PCR) Negative PCR FLU B RSV (PCR) Negative PCR RSV Group A Strep DNA NOT DETECTED Lab Acknowledgement POC Troponin I 0.00 L 04/23/23 04/23/23 04/23/23 14:35 14:42 15:48 WBC RBC Hgb Hct MCV MCH MCHC RDW Coeff of Libra Plt Count Neut % (Auto) Lymph % (Auto) Cedar % (Auto) Eos % (Auto) Baso % (Auto) Neut # (Auto) Lymph # (Auto) Cedar # (Auto) Eos # (Auto) Baso # (Auto) D-Dimer Quant (PE/DVT) Sodium Potassium Chloride Carbon Dioxide BUN Creatinine Estimated Creat Clear Estimated GFR Glucose Lactate Calcium Total Bilirubin AST ALT Alkaline Phosphatase C-Reactive Protein Total Protein Albumin Procalcitonin Urine Color Urine Appearance Urine pH Ur Specific [place] Urine Protein Urine Glucose (UA) Urine Ketones Urine Blood Urine Nitrite Urine Bilirubin Urine Urobilinogen Ur Leukocyte Esterase Urine RBC Urine WBC Ur Squamous Epith Cells Urine Bacteria Urine Opiates Screen Ur Oxycodone Screen Urine Methadone Screen Ur Propoxyphene Screen Ur Barbiturates Screen U Tricyclic Antidepress Ur Phencyclidine Scrn Ur Amphetamines Screen U Methamphetamines Scrn U Benzodiazepines Scrn Urine Cocaine Screen U Marijuana (THC) Screen Ur Drug Screen Comment Ethyl Alcohol SARS-CoV-2 (PCR) Influenza Type A (PCR) Influenza Type B (PCR) RSV (PCR) Group A Strep DNA Lab Acknowledgement Test Added Test Added Test Added POC Troponin I 04/23/23 04/23/23 04/24/23 18:08 18:32 06:06 WBC 14.35 H 9.80 RBC 4.62 4.39 Hgb 10.4 L 9.9 L Hct 35.0 L 32.9 L MCV 76 L 75 L MCH 23 L 23 L MCHC 30 L 30 L RDW Coeff of Libra 16.6 H 16.8 H Plt Count 101 L 329 Neut % (Auto) 79.9 H 68.9 Lymph % (Auto) 14.0 L 20.4 Cedar % (Auto) 5.2 8.0 Eos % (Auto) 0.6 2.0 Baso % (Auto) 0.2 0.5 Neut # (Auto) 11.50 H 6.75 Lymph # (Auto) 2.00 2.00 Cedar # (Auto) 0.70 0.80 Eos # (Auto) 0.10 0.20 Baso # (Auto) 0.00 0.05 D-Dimer Quant (PE/DVT) Sodium 141 Potassium 4.0 Chloride 108 Carbon Dioxide 26 BUN 11 Creatinine 1.1 Estimated Creat Clear 85.24 Estimated GFR 80 Glucose 125 H Lactate 2.7 H 1.9 Calcium 8.6 Total Bilirubin AST ALT Alkaline Phosphatase C-Reactive Protein Total Protein Albumin Procalcitonin Urine Color Urine Appearance Urine pH Ur Specific [place] Urine Protein Urine Glucose (UA) Urine Ketones Urine Blood Urine Nitrite Urine Bilirubin Urine Urobilinogen Ur Leukocyte Esterase Urine RBC Urine WBC Ur Squamous Epith Cells Urine Bacteria Urine Opiates Screen Ur Oxycodone Screen Urine Methadone Screen Ur Propoxyphene Screen Ur Barbiturates Screen U Tricyclic Antidepress Ur Phencyclidine Scrn Ur Amphetamines Screen U Methamphetamines Scrn U Benzodiazepines Scrn Urine Cocaine Screen U Marijuana (THC) Screen Ur Drug Screen Comment Ethyl Alcohol SARS-CoV-2 (PCR) Influenza Type A (PCR) Influenza Type B (PCR) RSV (PCR) Group A Strep DNA Lab Acknowledgement Test Added Test Added POC Troponin I
[2023-04-24 11:11] LABS: Procalcitonin* 0.29 ng/mL (<0.50)
--- NOTE | 2023-04-24 17:53 | PC.NURSE ---
End of Shift: Patient pleasant and cooperative. Patient vitally stable, lungs clear, BS WNL, IV SL and intact. Patient afebrile this shift. Patient denies pain. Patient had negative stool guiac x3. Patient urinating and tolerating regular diet. Patient independent in room.
[2023-04-25 01:27] VITALS: BP 128/84; PULSE 95; RESP 18; TEMP 37.2; O2SAT 92
[2023-04-25 01:29] VITALS: PULSE 96
--- NOTE | 2023-04-25 05:45 | PC.NURSE ---
[id number]: Patient cooperative with cares. Afebrile. Independent in room. Encouraged to walk halls but declined. Appeared to rest well during noc. Denies pain.
[2023-04-25 07:00] VITALS: BP 140/90; PULSE 77; PULSE 91; RESP 18; TEMP 36.8; O2SAT 97
[2023-04-25 07:29] LABS: Basophils Absolute Auto 0.05 K/uL (0.00-0.30); Basophils Percent Auto 0.5 % (0.0-3.0); Eosinophils Absolute Auto 0.29 K/uL (0.00-0.50); Eosinophils Percent Auto 3.1 % (0.0-7.0); Hematocrit 34.3 % (37.0-53.0); Hemoglobin* 10.5 gm/dL (13.5-17.5); Immature Granulocytes Abs Auto 0.01 K/uL (0.00-0.30); Immature Granulocytes Pct Auto 0.1 %; Lymphocytes Absolute Auto 2.01 K/uL (0.90-2.90); Lymphocytes Percent Auto 21.3 % (20-44); Mean Corpuscular HGB Conc 31 gm/dL (32-36); Mean Corpuscular Hemoglobin 23 pg (26-34); Mean Corpuscular Volume 73 fL (80-100); Monocytes Percent Auto 9.2 % (0.0-11.0); Neutrophils Absolute Auto 6.21 K/uL (1.7-7.0); Neutrophils Percent Auto 65.8 % (42.0-72.0); Platelet Count* 359 K/uL (140-440); RDW Coefficient of Variation % 16.8 % (11.5-15.5); Red Blood Count 4.67 m/uL (4.30-5.90); White Blood Count* 9.44 K/uL (4.50-11.00)
[2023-04-25 07:39] LABS: Slide Review Reflex No
[2023-04-25 07:45] LABS: Chloride* 106 mmol/L (96-114); Sodium* 135 mmol/L (135-149)
[2023-04-25 07:46] LABS: Potassium* 3.5 mmol/L (3.6-5.1)
[2023-04-25 07:48] LABS: Carbon Dioxide* 24 mmol/L (20-32); Creatinine* 1.1 mg/dL (0.5-1.5); Est. Creatinine Clearance* 85.24; Estimated Glomerular Filt Rate 80 ml/min
[2023-04-25 07:49] LABS: Blood Urea Nitrogen* 12 mg/dL (7-30); Calcium* 8.5 mg/dL (8.4-10.6); Glucose* 111 mg/dL (60-115)
[2023-04-25 08:04] LABS: Procalcitonin* 0.17 ng/mL (<0.50)
[2023-04-25] MEDS: FEXOFENADINE 180 MG TABLET PO (09:25)
[2023-04-25] MEDS: OMEPRAZOLE 20 MG CAPSULE DR PO (09:25)
[2023-04-25] MEDS: SODIUM CHLORIDE 0.9 % (FLUSH) 10 ML SYRINGE 5 ML IVF (09:27)
--- NOTE | 2023-04-25 09:39 | PM.DS1 ---
DS: Providers Provider Date Seen: 04/25/23 Date of admission: 04/23/23 15:12 Primary care physician: Aristides Hwang MD Admitting Clinician: Orville St MD Attending Physician on discharge: Lucas Johnson Date of Discharge: 04/25/23 DS: Diagnosis Discharge Diagnosis (1) Syncope: Status: Acute Problem details: Cause of syncope possible vasovagal syncope (2) Anemia: Status: Acute Problem details: Previous history of anemia from diverticular bleeding. This was about 3 years ago. He had colonoscopy about 2 and half years ago which only showed diverticulosis without any other abnormalities. Serial hgb stable (3) Fever: Status: Acute Problem details: Cause of fever not clear at this point he is well-appearing. No other obvious focus of symptoms. Suspect viral etiology Blood Cx/Urine Cx NGTD Tick borne panel pending and will need follow up by PCP DS: Summary Hospital Course Hospital Course: Admitted to med surg monitoring off antibiotics. EKG NSR, Echo normal EF no valvular disease. WBC normal at discharge. no s/s of GI bleed. Afebrile over last 24 hours. Procal 0.17. Will need close follow up pcp in 3-5 days post hospital follow up. Viral tick borne panel pending at discharge and will need to be reviewed in clinic. Sepsis ruled out Time Spent with Patient Time attestation: Total time spent providing and/or coordinating discharge services: Exam Narrative: Exam Narrative: Gen: no acute distress HEENT: NCAT EOMI mmm Neck: Supple CV: RRR normal s1 s2 Lungs: CTAB Abd: Soft,nt, nd Neuro: Alert, oriented, CN grossly intact; nonfocal screening?exam Psych: appropriate affect MSK: age appropriate muscle mass Skin; Warm, dry no rash on face Const: Vital Signs, click to edit/add: Vital Signs - 24 hr 04/24/23 11:00 04/24/23 15:00 04/24/23 15:00 Temperature 98.1 F 98.2 F Pulse Rate 87 Pulse Rate [Right Pulse Oximeter] 69 85 Pulse Rate [orthos tatic lying] Pulse Rate [orthos tatic sitting] Pulse Rate [orthos tatic standing] Respiratory Rate 18 16 Blood Pressure [Ri ght Arm] 151/94 H 143/88 H Blood Pressure [or thostatic lying Le ft Arm] Blood Pressure [or thostatic sitting Left Arm] Blood Pressure [or thostatic standing Left Arm] Pulse Oximetry 99 96 Oxygen Delivery Me thod Room Air Room Air 04/24/23 15:00 04/24/23 19:44 04/24/23 19:45 Temperature 98.1 F Pulse Rate Pulse Rate [Right Pulse Oximeter] 85 88 Pulse Rate [orthos tatic lying] 88 Pulse Rate [orthos tatic sitting] 95 Pulse Rate [orthos tatic standing] 101 H Respiratory Rate 16 16 Blood Pressure [Ri ght Arm] 133/90 H Blood Pressure [or thostatic lying Le ft Arm] 133/90 H Blood Pressure [or thostatic sitting Left Arm] 135/103 H Blood Pressure [or thostatic standing Left Arm] 150/96 H Pulse Oximetry 97 Oxygen Delivery Me thod Room Air 04/24/23 22:19 04/25/23 01:27 04/25/23 01:29 Temperature 99.4 F 99.0 F Pulse Rate 96 Pulse Rate [Right Pulse Oximeter] 95 95 Pulse Rate [orthos tatic lying] Pulse Rate [orthos tatic sitting] Pulse Rate [orthos tatic standing] Respiratory Rate 18 18 Blood Pressure [Ri ght Arm] 134/87 128/84 Blood Pressure [or thostatic lying Le ft Arm] Blood Pressure [or thostatic sitting Left Arm] Blood Pressure [or thostatic standing Left Arm] Pulse Oximetry 95 92 Oxygen Delivery Wy thod Room Air Room Air DS: Data Data Completed and Pending Labs on day of discharge: Labs from last 24 hours 04/25/23 04/24/23 06:25 06:06 WBC 9.44 RBC 4.67 Hgb 10.5 L Hct 34.3 L MCV 73 L MCH 23 L MCHC 31 L RDW Coeff of Libra 16.8 H Plt Count 359 Neut % (Auto) 65.8 Lymph % (Auto) 21.3 [place] % (Auto) 9.2 Eos % (Auto) 3.1 Baso % (Auto) 0.5 Neut # (Auto) 6.21 Lymph # (Auto) 2.01 [place] # (Auto) 0.90 Eos # (Auto) 0.29 Baso # (Auto) 0.05 Sodium 135 Potassium 3.5 L Chloride 106 Carbon Dioxide 24 BUN 12 Creatinine 1.1 Estimated Creat Clear 85.24 Estimated GFR 80 Glucose 111 Calcium 8.5 Procalcitonin 0.17 0.29 Lab Acknowledgement Test Added Preliminary micro results at discharge 04/23/23 10:38 Blood Culture - Preliminary Blood NO GROWTH AFTER 24 HOURS 04/23/23 10:30 Blood Culture - Preliminary Blood NO GROWTH AFTER 24 HOURS Discharge Plan Discharge Disposition: Home, Self-Care Date of Admission: 04/23/23 15:12 Attending Provider on Discharge: Lucas Johnson Primary Care Provider: Aristides Hwang Condition: Improved Anticipated Discharge Date/Time: 04/25/23 09:37 Discharge Medications: Continued omeprazole magnesium [Prilosec OTC] 20 mg tablet,delayed release (DR/EC) 20 mg PO DAILY mupirocin 2 % ointment 1 applic topical TID fexofenadine [Teresa Allergy] 180 mg tablet 180 mg PO QDAY Discharge Orders: Discharge Order (Routine); Ordered 04/25/23 Ordered By: Lucas Johnson Patient Education: Syncope (DC), Sepsis (DC) Activity Level: Activity as Tolerated Diet Detail: Resume previous home diet Follow Up Appointments: Aristides Hwang MD [Primary Care Provider] - 05/01/23 9:15 am ([facility] with Dr. Hwang for follow-up.) Forms: [email or web address] Info Instructions
[2023-04-25 10:29] VITALS: BP 133/90; PULSE 96; RESP 18; TEMP 36.8
[2023-04-25 11:00] VITALS: BP 133/101; PULSE 84; RESP 18; TEMP 36.7; O2SAT 99
[2023-04-25 11:51] VITALS: BP 133/101; PULSE 84; RESP 18; TEMP 36.7
--- NOTE | 2023-04-25 11:56 | PC.NURSE ---
Nursing Care Hours: [id number] Pt this shift calm and cooperative, alert and oriented. Eating, drinking, and voiding independently. No c/o pain, dizziness or feeling light headed. tele shows and NSR and sinus arrhythmia. Pulse bouncing between 60's and 100-teens. 12 lead performed confirming tele strip. VSS. Discharge instructions went over with pt. Discussed sinus arrhythmia and potential to cause symptoms pt experienced that brought pt in. Discussed amount of caffeine intake and to try decreasing and also to increase H2O intake. Pt states I am not very good at that, except during my stay here. Swedger also instructed pt to write down date, time, and activity at that time, if pt experiences symptoms again. Pt also questioning why he is anemic if there is no bleeding. Swedger educated pt on dietary intake and absorption. Pt states that he decreased red meat intake d/t Hx of gout. Discussed eating iron rich foods with vit c to aid in absorption and to further discuss diet with primary at follow-up.
[2023-04-27 07:44] LABS: Anaplasma phagocyt PCR Not Detected; Babesia microti by PCR Not Detected; Babesia species by PCR Not Detected; Ehrlichia chaffeensis by PCR Not Detected; Ehrlichia ewingii/canis by PCR Not Detected; Ehrlichia muris-like by PCR Not Detected
== END 2023-04-25 11:45 | disposition home or self-care (01) ==
LOC: ED 14:50 → MEDSURG 15:12
PROVIDERS: Hospitalist; Admitting Provider Family Medicine; Emergency Provider Family Medicine; PCP Internal Medicine; Visit Provider Family Medicine
DX: R55 Syncope and collapse (principal); D64.9 Anemia, unspecified; R50.9 Fever, unspecified; D72.829 Elevated white blood cell count, unspecified; R79.82 Elevated C-reactive protein (CRP); R53.83 Other fatigue; R42 Dizziness and giddiness; R00.0 Tachycardia, unspecified; K21.9 Gastro-esophageal reflux disease without esophagitis; Z20.822 Contact with and (suspected) exposure to COVID-19; Z87.19 Personal history of other diseases of the digestive system; Z87.442 Personal history of urinary calculi
CPT/HCPCS: 36415; 71045; 80048; 80053; 80306; 81001; 82077; 83605; 84145; 84484; 85025; 85379; 86140; 86789; 87040; 87086; 87631; 87651; 87798; 93005; 93306; 96361; 96365; 96366; 99285; G0378; A9270; J2543; J7030; J7050; J7120

== ENCOUNTER 2023-05-02 17:00 | Outpatient (CLI) | payer OTHER, SELFPAY | END 2023-05-02 17:01 | disposition home or self-care (01) | PROVIDERS: PCP Internal Medicine; Visit Provider Internal Medicine | DX: D64.9 Anemia, unspecified (principal) | CPT/HCPCS: 82607; 82746; 83540; 83550; 85045 ==

== ENCOUNTER 2023-05-26 11:08 | Outpatient (CLI) | payer OTHER, SELFPAY | END 2023-05-26 11:09 | disposition home or self-care (01) | LOC: OP CLINIC 11:09 | PROVIDERS: PCP Internal Medicine; Visit Provider Internal Medicine | DX: D50.9 Iron deficiency anemia, unspecified (principal); K44.9 Diaphragmatic hernia without obstruction or gangrene; K31.7 Polyp of stomach and duodenum; K57.30 Diverticulosis of large intestine without perforation or abscess without bleeding | CPT/HCPCS: 43239; 45378; 88305; J2250; J3010 ==

== ENCOUNTER 2023-10-03 16:36 | Outpatient (CLI) | payer OTHER, SELFPAY | END 2023-10-03 16:37 | disposition home or self-care (01) | LOC: NFLDREF 16:37 | PROVIDERS: PCP Internal Medicine; Visit Provider Internal Medicine | DX: D64.9 Anemia, unspecified (principal) | CPT/HCPCS: 83540; 83550 ==

== ENCOUNTER 2023-11-30 15:11 | Outpatient (CLI) | payer OTHER, SELFPAY | END 2023-11-30 15:12 | disposition home or self-care (01) | PROVIDERS: PCP Internal Medicine; Visit Provider Nurse Practitioner Family | DX: K92.2 Gastrointestinal hemorrhage, unspecified (principal) | CPT/HCPCS: 80048; 85025 ==

== ENCOUNTER 2023-12-22 10:15 | Outpatient (CLI) | payer OTHER, SELFPAY | END 2023-12-22 10:16 | disposition home or self-care (01) | PROVIDERS: PCP Internal Medicine; Visit Provider Nurse Practitioner Family | DX: K57.92 Diverticulitis of intestine, part unspecified, without perforation or abscess without bleeding (principal); K62.5 Hemorrhage of anus and rectum; Z13.228 Encounter for screening for other metabolic disorders | CPT/HCPCS: 80048; 85025 ==

== ENCOUNTER 2023-12-22 11:24 | Outpatient (CLI) | payer OTHER, SELFPAY ==
--- NOTE | 2023-12-22 11:30 | CRLHL7_ITS ---
For Patients: As a result of the Century Cures Act, medical imaging exams and procedure reports are released immediately into your electronic medical record. You may view this report before your referring provider. If you have questions, please contact your health care provider. INDICATION: ABDOMINAL PAIN, HEMORRHAGE OF ANUS AND RECTUM. HX DIVERTICULITIS, HX KIDNEY STONE TECHNIQUE: CT abdomen and pelvis acquired with 97 cc Isovue 370 IV contrast. COMPARISON: None. FINDINGS: Lower chest: Solid 4 millimeter pulmonary nodule at the right lung base. An calcified granuloma in the left lung base. Liver: Unremarkable. Within normal limits in size and attenuation. No suspicious masses. Gallbladder and bile ducts: Unremarkable. No stones or inflammation. No biliary dilatation. Pancreas: Unremarkable. No mass or inflammation. Spleen: Normal in size. No masses. Small splenule near the hilum. Adrenal glands: Unremarkable. No nodules. Kidneys: Unremarkable. No suspicious masses, stones, or hydronephrosis. GI tract: Small hiatal hernia. No evidence of bowel obstruction. The appendix is normal. There are a few diverticula involving the descending colon/proximal sigmoid colon with questionable minimal, faint pericolonic inflammatory changes. Vasculature: Abdominal aorta is normal in caliber. Mesenteric arteries are patent. Lymph nodes: No lymphadenopathy. Peritoneum/Abdominal Wall: Unremarkable. No sign of mass or infiltration. No free air or free fluid. Pelvis: Mild circumferential bladder wall thickening, likely secondary to obstruction from mild prostatomegaly. Bones: Unremarkable for age. IMPRESSION: 1. There are a few diverticula involving the descending colon/proximal sigmoid colon with questionable minimal, faint pericolonic inflammatory changes, equivocal for early acute, uncomplicated diverticulitis. 2. No pericolonic abscess. No free fluid or free air. Please note that all CT scans at this facility use dose modulation, iterative reconstruction, and/or weight-based dosing when appropriate to reduce radiation dose to as low as reasonably achievable. Dictated by Feroz Conway MD @ 12/22/2023 12:56:22 PM (Electronically Signed)
== END 2023-12-22 11:25 | disposition home or self-care (01) ==
LOC: CT 11:26
PROVIDERS: PCP Internal Medicine; Visit Provider Nurse Practitioner Family
DX: K62.5 Hemorrhage of anus and rectum (principal); R10.9 Unspecified abdominal pain
CPT/HCPCS: 74177; Q9967

== ENCOUNTER 2024-05-07 16:11 | Outpatient (CLI) | payer OTHER, SELFPAY | END 2024-05-07 16:12 | disposition home or self-care (01) | PROVIDERS: PCP Internal Medicine; Visit Provider Nurse Practitioner Family | DX: Z12.5 Encounter for screening for malignant neoplasm of prostate (principal); K57.32 Diverticulitis of large intestine without perforation or abscess without bleeding | CPT/HCPCS: 85025; G0103 ==

== ENCOUNTER 2025-10-23 08:34 | Outpatient (CLI) | payer OTHER, SELFPAY | END 2025-10-23 08:35 | disposition home or self-care (01) | PROVIDERS: PCP Internal Medicine; Visit Provider Nurse Practitioner Family | DX: Z00.00 Encounter for general adult medical examination without abnormal findings (principal); Z86.2 Personal history of diseases of the blood and blood-forming organs and certain disorders involving the immune mechanism | CPT/HCPCS: 80053; 80061; 83540; 83550; 85025; G0103 ==

== ENCOUNTER 2025-10-27 09:17 | Outpatient (CLI) | payer OTHER, SELFPAY ==
--- NOTE | 2025-12-09 12:01 | W.PM.SLEEP ---
Sleep Study Details Details Interpreting Provider: Milana Date of Sleep Study: 10/27/25 Sleep Study Details: STUDY TYPE:? Home unattended ? BMI:? 27.8 ORDERING PROVIDER:? Milana INDICATION:? Concern for sleep apnea ? SLEEP SUMMARY:? 436 minutes monitored RESPIRATORY SUMMARY:? AHI 6.6, AHI is 2.3 using CMS guideline Low oxygen 88 0.7% of study oxygen less than 90% Snoring 96% PERIODIC LIMB MOVEMENTS OF SLEEP:? Not recorded CARDIAC:? Range 52-113, mean 72.6 beats per minute IMPRESSION:? Mild obstructive sleep apnea RECOMMENDATION: Treatment options include CPAP dental appliance and/or airway expansion surgery.
== END 2025-10-27 09:18 | disposition home or self-care (01) ==
LOC: SLEEP 09:18
PROVIDERS: PCP Internal Medicine; Visit Provider Otolaryngology
DX: G47.33 Obstructive sleep apnea (adult) (pediatric) (principal)
CPT/HCPCS: 95806